=== PATIENT | female | born 1995 | race Caucasian/White ===

== ENCOUNTER 2024-06-21 21:13 | Emergency (ER) | payer MEDICAID, SELFPAY ==
[2024-06-21 21:14] VITALS: BMI 44.2
[2024-06-21 21:26] VITALS: BP 145/85; PULSE 69; RESP 20; TEMP 36.7; O2SAT 95
--- NOTE | 2024-06-21 21:38 | XR_ITS ---
Examination: CT abdomen and pelvis without contrast. Coronal 3-D reconstructions. Sagittal 2-D reconstructions. Date and time of exam:June 21, 2024 1110 hrs. Indications: Lower abdominal pain beginning 2:00 AM yesterday CTDI: vol (mGy): 17.8 DLP: (mGycm): 1042 Technique: Axial images of the abdomen have been obtained, 3 mm slice thickness Intravenous contrast material has not been administered. Low dose protocols were performed. One or more of the following dose reduction techniques were used; automated exposure control, adjustment of the mA and/or KV according to patient size, use of iterative reconstruction technique. Findings: No focal liver or splenic lesions Absent gallbladder No pancreatic or adrenal mass No renal or ureteral calculi, no hydronephrosis Aorta normal size Tiny fat-containing umbilical hernia Normal appendix No bowel obstruction 26 mm left ovarian cyst No adnexal mass Urinary bladder intact Mild osteopenia Impression: No renal or ureteral calculi, no hydronephrosis Normal appendix 26 mm left ovarian cyst No bowel obstruction diverticulitis or free air
--- NOTE | 2024-06-21 21:40 | PD.EDRME ---
Rapid Medical Screening Exam [facility], [facility] Arrival date/time: 06/21/24 21:13 29F with history of cholecystectomy presents to ED with 2 days of L flank/pelvic pain and N/V. Patient denies dysuria/hematuria, vaginal bleeding, and leg swelling. Chief Complaint: Abdominal Pain Vital signs: Vital Signs Temperature 98.0 F 06/21/24 21:26 Pulse Rate 69 06/21/24 21:26 Respiratory Rate 20 06/21/24 21:26 Blood Pressure 145/85 H 06/21/24 21:26 Pulse Oximetry (%) 95 06/21/24 21:26 Oxygen Delivery Method Room Air 06/21/24 21:26
--- NOTE | 2024-06-21 21:59 | XR_ITS ---
Examination: Pelvic ultrasound, transabdominal, complete Technique: Transabdominal ultrasound of the pelvis performed using grayscale imaging Date and time of exam: June 21, 2024 2159 hrs. Indications: Left pelvic pain beginning 2 days ago Findings: Uterus 10.3 x 4.8 x 5.9 cm small uterine fundal area of fibroid degeneration 1.3 x 5.9 x 1.5 cm No intrauterine gestation Endometrial stripe 14 mm Right ovary 4.0 x 2.2 x 3.5 cm arterial flow Left ovary 4.0 x 2.6 x 4.0 cm arterial flow 25 x 20 x 26 mm cyst Impression: Small uterine area of fibroid degeneration 13 x 9 x 15 mm Small left ovarian simple cyst 25 x 20 x 26 mm
[2024-06-21 22:13] LABS: Basophils # (Auto) 0.1 Thou/mm3 (0.0-0.2); Basophils % (Auto) 0 % (0-2.5); Eosinophils # (Auto) 0.2 Thou/mm3 (0.0-0.5); Eosinophils % (Auto) 1 % (0-10); Hematocrit 42.1 % (36.0-46.0); Immature Granulocytes % (Auto) 0 % (0-0); Immature Granulocytes Auto 0.05 Thou/mm3 (0.00-0.00); Lymphocytes # (Auto) 2.2 Thou/mm3 (1.0-4.8); Lymphocytes % (Auto) 15 % (10-50); Mean Corpuscular HGB Conc 33.3 g/dl (31.0-37.0); Mean Corpuscular Hemoglobin 26.5 pg (25.0-35.0); Mean Corpuscular Volume 80 fL (80-100); Monocytes # (Auto) 0.9 Thou/mm3 (0.0-0.8); Monocytes % (Auto) 6 % (0-12); Neutrophils # (Auto) 11.8 Thou/mm3 (1.8-7.7); Neutrophils % (Auto) 78 % (37-80); Nucleated Red Blood Cell % 0 /100 WBC (0); Platelet Count 251 Thou/mm3 (140-440); RDW Standard Deviation 39.5 fL (36.4-46.3); Red Blood Count 5.28 Miln/mm3 (4.00-5.20); White Blood Count 15.2 Thou/mm3 (3.6-11.0)
[2024-06-21 22:38] LABS: Alanine Aminotransferase 23 U/L (10-49); Albumin, Serum 4.6 gm/dL (3.5-5.0); Albumin/Globulin Ratio 1.7 (1.2-2.2); Alkaline Phosphatase 85 U/L (46-116); Anion Gap 8 (7-16); Aspartate Amino Transferase 17 U/L (0-34); BUN/Creatinine Ratio 13 Ratio (12-20); Bilirubin,Total 0.9 mg/dL (0.3-1.2); Blood Urea Nitrogen 9 mg/dL (9-23); Carbon Dioxide 25.8 mMol/L (20.0-31.0); Chloride 106 mMol/L (98-107); Creatinine (Component) 0.7 mg/dL (0.6-1.3); Estimated Creatinine Clearance 141.2 mL/min (>60); Globulin 2.7 gm/dL (2.3-3.5); Glucose 91 mg/dL (74-106); Lipase 29 U/L (12-53); Osmolality,Calculated 278 (275-295); Potassium 4.1 mMol/L (3.4-5.1); Sodium 140 mMol/L (136-145); Total Protein 7.3 gm/dL (5.7-8.2); eGFR > 60 See Note
[2024-06-21] MEDS: KETOROLAC INJ 60 MG/2 ML VIAL IM (22:40)
[2024-06-21] MEDS: ONDANSETRON ODT 4 MG TABRAP PO (22:40)
[2024-06-21 22:42] LABS: Collection Type, Urine Clean Catch
[2024-06-21 22:46] LABS: HCG Qualitative,Urine Negative
[2024-06-21 22:47] LABS: Bacteria,Urine Rare; Bilirubin,Urine Negative (Negative); Blood,Urine 1+ (Negative); Clarity,Urine Turbid (Clear/Hazy); Color,Urine Yellow (Lt Yel-Yel); Glucose, Urine Negative (Negative); Ketones,Urine Negative (Negative); Leukocyte Esterase,Urine Negative (Negative); Nitrite,Urine Negative (Negative); PH,Urine 5.5 (5.0-7.0); Protein,Urine Trace (Neg - Trace); RBC,Urine 3 /hpf (0-3); Specific Gravity,Urine 1.034 (1.001-1.035); Squamous Epithelial Cell,Urine 4 /hpf (0-5); Urobilinogen,Urine Negative mg/dL (0.0-1.0); WBC,Urine 2 /hpf (0-5)
--- NOTE | 2024-06-21 23:03 | PD.EDABDPN ---
ED Abdominal Pain RME/HPI General Chief Complaint: Abdominal Pain Stated complaint: LOWER ABD/PELVIC PAIN X 2DAYS. Arrival date/time: 06/21/24 21:13 RME / HPI RME / HPI narrative: 06/21/24 21:13 29F with history of cholecystectomy presents to ED with 2 days of L flank/pelvic pain and N/V. Patient denies dysuria/hematuria, vaginal bleeding, and leg swelling. --------- Dr. Painter?s Main ED Evaluation: 29yo female with a history of cholecystectomy presents to the ED for a chief complaint of pelvic pain x 2 days. Patient states she's had shocking pelvic pain that radiates to her back (L>R). She endorses having associated nausea and vomiting tonight and was concerned, so she came in for evaluation. She denies any fever, chills or any other associated symptoms. No known allergies. LMP was 05/26/24. She denies any possibility of being . Related Data Previous Rx's ?Medication ?Instructions ?Recorded acetaminophen 500 mg capsule 1,000 mg (2 x 500 mg) PO Q6H PRN 06/22/24 pain 5 days #40 caps ibuprofen 600 mg tablet 600 mg PO Q6H PRN pain 5 days #20 06/22/24 tabs Allergies Allergy/AdvReac Type Severity Reaction Status Date / Time No Known Allergies Allergy Verified 06/21/24 21:17 Review of Systems Review of Systems Systems Reviewed: All systems reviewed, normal except as documented Past Medical History Past Medical History NEUROLOGIC: Negative Neurological Disorders or Seizures CARDIAC: Negative Cardiac Disorders or Congestive Heart Failure RESPIRATORY: Negative Chronic Obstructive Pulmonary Disease (COPD) GASTROINTESTINAL: Positive Gastrointestinal Disorders, Gall Bladder Disease and Ulcer GENITOURINARY: Negative Genitourinary Disorders or Renal Disease REPRODUCTIVE: Positive Previous Pregnancies MUSCULOSKELETAL: Negative Musculoskeletal Disorders ENDOCRINE: Negative Endocrine Disorders, Diabetes Mellitus Type 1 or Diabetes Mellitus Type 2 HEMATOLOGIC: Negative Blood Disorders PSYCHO/SOCIAL: Positive Anxiety OTHER HISTORY: Positive Chicken Pox; Negative Autoimmune Disease, Blood Transfusions, Blood Transfusion Reaction or Anesthesia Reactions Family History FAMILY HISTORY: Positive Family Cancer and Family Surgery; Negative Family Psychiatric Problems, Family Respiratory Disorders, Family Cardiac Disorders, Family Gastrointestinal Problems or Family Anesthesia Reaction Surgical History SURGICAL: Positive Abdominal Surgery and Section Social History SMOKING STATUS: Never smoker SECOND HAND EXPOSURE: No SUBSTANCE USE: does not use OCCUPATION: stay at home mother ED Exam Narrative Physical exam: GENERAL APPEARANCE: alert and oriented x 4, well-developed, well-nourished, no acute distress VITALS: All vitals were reviewed and the pulse ox is 95% on room air, which is normal according to my interpretation. HEENT: Normocephalic, atraumatic; pupils equal, round, reactive to light; EOMI; mucous membranes pink, moist; oropharynx clear NECK: Supple LUNGS: CTABL; no wheezes, no rales, no rhonchi HEART: Regular rate, regular rhythm; normal S1, S2; no murmurs ABDOMEN: non distended; normal BS; soft, [id number] to the left pelvic/LLQ tenderness without any overlying rash, no guarding, no rebound; no masses, no organomegaly, no hernia BACK: no CVA tenderness EXTREMITIES: atraumatic; no edema NEUROLOGIC: awake; alert and oriented x4; cranial nerves II-XII grossly intact; no focal sensory or motor deficits PSYCHIATRIC: appropriate mood and affect SKIN: warm, dry, normal color; no rashes Course Quality Measures none Orders Category Date Time Status CT abdomen pelvis wo con Stat Exams 06/21/24 21:38 Completed US pelvic complete Stat Exams 06/21/24 21:59 Completed CBC Stat Lab 06/21/24 21:55 Completed CMP [Comprehensive Metabolic Panel] Stat Lab 06/21/24 21:55 Completed Drug Screen,Urine Stat Lab 06/21/24 22:37 Completed HCG Qualitative,Urine Stat Lab 06/21/24 22:37 Completed Lipase Stat Lab 06/21/24 21:55 Completed Urinalysis Stat Lab 06/21/24 22:37 Completed HYDROmorphone INJ [Dilaudid Inj] Med 06/22/24 00:13 Discontinued 0.5 mg IVP X1 ONE Ketorolac Inj [Toradol Inj] Med 06/21/24 21:39 Discontinued 60 mg IM X1 ONE Ondansetron Inj [Zofran Inj] Med 06/22/24 00:13 Discontinued 4 mg IV X1 ONE Ondansetron Odt [Zofran Odt] Med 06/21/24 21:39 Discontinued 4 mg PO X1 ONE Vital Signs Vital signs: Vital Signs Temperature 98.0 F 06/21/24 21:26 Pulse Rate 69 06/21/24 21:26 Respiratory Rate 20 06/21/24 21:26 Blood Pressure 145/85 H 06/21/24 21:26 Pulse Oximetry (%) 95 06/21/24 21:26 Oxygen Delivery Method Room Air 06/21/24 21:26 Abdominal Pain MDM MDM Narrative MDM Narrative:: Scribe Attestation: 06/21/24 - Merly Pro am scribing for and in the presence of Dr. Painter. Patient data External records reviewed:: [facility] previous records (Per chart review, patient was admitted here on 05/28/19 for Hyperbilirubinemia.) Clinical information provided by:: patient Social determinants that could affect healthcare access:: none Patient has the following chronic illnesses:: none How is presenting disease/condition affected by chronic disease/condition?: no chronic disease Evaluation data The following diagnostics were reviewed and interpreted by me:: lab results and radiology exam(s) Lab and/or radiology exams considered but not ordered:: none Interpretation Summary: WBC count is elevated at 15.2, CMP is normal, Lipase is normal, HCG is negative, UA is unremarkable, UDS is positive for opiates, according to my interpretation. ----- [facility] Report Signed Patient: DOM HALL Record#: [id number] Birthdate: 1995 Age/Sex: 29 / F Location: [facility] [place] Attending Dr: Ordering Physician: Rishi Saleh PA-C Date of Service: 06/21/24 Procedure(s): US pelvic complete Accession Number(s): [id number] cc: Reece Arizmendi MD; NO PRIMARY/FAMILY,PHYSICIAN; Rishi Saleh PA-C~ Examination: Pelvic ultrasound, transabdominal, complete Technique: Transabdominal ultrasound of the pelvis performed using grayscale imaging Date and time of exam: June 21, 2024 2159 hrs. Indications: Left pelvic pain beginning 2 days ago Findings: Uterus 10.3 x 4.8 x 5.9 cm small uterine fundal area of fibroid degeneration 1.3 x 5.9 x 1.5 cm No intrauterine gestation Endometrial stripe 14 mm Right ovary 4.0 x 2.2 x 3.5 cm arterial flow Left ovary 4.0 x 2.6 x 4.0 cm arterial flow 25 x 20 x 26 mm cyst Impression: Small uterine area of fibroid degeneration 13 x 9 x 15 mm Small left ovarian simple cyst 25 x 20 x 26 mm Dictated By: Reece Arizmendi MD Signed By: <Electronically signed by Reece Arizmendi MD in OV> 06/21/[address] [facility] Report Signed Patient: DOM HALL Record#: [id number] Birthdate: 1995 Age/Sex: 29 / F Location: [facility] Attending Dr: Ordering Physician: Rishi Saleh PA-C Date of Service: 06/21/24 Procedure(s): CT abdomen pelvis wo con Accession Number(s): [id number] cc: Reece Arizmendi MD; NO PRIMARY/FAMILY,PHYSICIAN; Rishi Saleh PA-C~ Examination: CT abdomen and pelvis without contrast. Coronal 3-D reconstructions. Sagittal 2-D reconstructions. Date and time of exam:June 21, 2024 1110 hrs. Indications: Lower abdominal pain beginning 2:00 AM yesterday CTDI: vol (mGy): 17.8 DLP: (mGycm): 1042 Technique: Axial images of the abdomen have been obtained, 3 mm slice thickness Intravenous contrast material has not been administered. Low dose protocols were performed. One or more of the following dose reduction techniques were used; automated exposure control, adjustment of the mA and/or KV according to patient size, use of iterative reconstruction technique. Findings: No focal liver or splenic lesions Absent gallbladder No pancreatic or adrenal mass No renal or ureteral calculi, no hydronephrosis Aorta normal size Tiny fat-containing umbilical hernia Normal appendix No bowel obstruction 26 mm left ovarian cyst No adnexal mass Urinary bladder intact Mild osteopenia Impression: No renal or ureteral calculi, no hydronephrosis Normal appendix 26 mm left ovarian cyst No bowel obstruction diverticulitis or free air Dictated By: Reece Arizmendi MD Signed By: <Electronically signed by Reece Arizmendi MD in OV> 06/21/24 8620 Medications / Prescriptions Medications or Prescriptions considered but not ordered:: none Medication administrations:: Medication Administration History Discontinued Medications Hydromorphone HCl (Hydromorphone Inj 2 Mg/Ml Vial) 0.5 mg IVP X1 ONE Stop: 06/22/24 00:14 Ketorolac Tromethamine (Ketorolac Inj 60 Mg/2 Ml Vial) 60 mg IM X1 ONE Stop: 06/21/24 21:40 Last Admin: 06/21/24 22:40 Dose: 60 mg Documented By: CHETAN Ondansetron HCl (Ondansetron Odt 4 Mg Tabrap) 4 mg PO X1 ONE; Protocol Stop: 06/21/24 21:40 Last Admin: 06/21/24 22:40 Dose: 4 mg Documented By: CHETAN Ondansetron HCl (Ondansetron Inj 2 Mg/Ml Inj 2 Ml) 4 mg IV X1 ONE; Protocol Stop: 06/22/24 00:14 see above Consultations Consultation(s) initiated? (list below): No Diagnosis Differential diagnosis abdominal pain: endometriosis and other (ovarian cyst, ovarian torsion) Most likely diagnosis given after review of the tests above:: see below Admission Indicated Admission indicated?: not indicated Admission Request Was there a request for admission?: No Disposition Plan Disposition Plan: Discharge Discharge Attestation Discharge Attestation: The patient and all family members were given an opportunity to ask questions and understood the discharge instructions. Discharge instructions specifically effects, indications for sooner follow up or return to the emergency department, and the expected course of current diagnosis. Patient condition: Stable Discharge Plan Plan Patient Disposition: HOME (Self Care) Disposition Comment: Stable for discharge Patient condition on transfer: Stable Prescriptions/Referrals Prescriptions/Med Rec: New ibuprofen 600 mg tablet 600 mg PO Q6H PRN (Reason: pain) 5 Days Qty: 20 0RF acetaminophen 500 mg capsule 1,000 mg PO Q6H PRN (Reason: pain) 5 Days Qty: 40 0RF Referrals: [facility] [Outside] - In 1 week No Primary/Family,Physician [Primary Care Provider] - In 1 week Problem List Clinical Impression: Ovarian cyst Patient/Caregiver Discharge Instructions Discharge Activity: activity as tolerated Education Materials: Understanding Ovarian Cysts, Treatment for Ovarian Cysts, ED Ovarian Cyst Additional Instructions: Please follow-up with your primary care doctor or in the family health care clinic within the next several days As always if you notice yourself worsening in any way or if you are not improving within the next couple of days you should return to the ER. Print Language: Bulgarian Stand Alone Forms: Lisbeth Award Info., Patient Portal Info Letter
[2024-06-21 23:07] LABS: Amphetamine/Methamp Scrn,U Negative (Negative); Barbiturate Screen,Urine Negative (Negative); Benzodiazepines Screen,Urine Negative (Negative); Benzoylecgonine Screen, Ur Negative (Negative); Fentanyl Screen,Urine Negative (Negative); Opiate Screen,Urine Positive (Negative); THC Screen,Urine Negative (Negative)
[2024-06-21 23:47] VITALS: BP 127/87; PULSE 63; RESP 18; O2SAT 95
[2024-06-22] MEDS: HYDROmorphone INJ 2 MG/ML VIAL 0.5 MG IVP (00:29)
[2024-06-22 00:33] VITALS: BP 127/84; PULSE 71; RESP 18; O2SAT 98
== END 2024-06-22 00:49 | disposition home or self-care (01) ==
PROVIDERS: Physician Assistant; Emergency Provider Emergency Medicine
DX: N83.292 Other ovarian cyst, left side (principal); D25.9 Leiomyoma of uterus, unspecified
CPT/HCPCS: 36415; 74176; 76856; 80053; 80307; 81001; 81025; 83690; 85025; 96372; 96374; 99284; J1885; J3490; Q0162